=== PATIENT | male | born 2000 | race Caucasian/White ===

== ENCOUNTER 2021-04-05 10:50 | Emergency (ER) | payer OTHER ==
[~2021-04-05] VITALS: Ht 175.3 cm; Wt 69.2 kg
--- NOTE | 2021-04-05 11:09 | NUR ---
FIRST CONTACT: "I THINK I HAVE PANCREATITS, MY MOM OF IT IN DECEMBER AND MY SISTER HAD IT"N/V, "SKIN IS YELLOW", FATIGUE, LOOSE STOOL NOT VACCINATED FOR COVID-19 PT WITH STEADY GAIT TO ROOM. ATTACHED TO MONITORS. VSS. OTTO. AWAITING ORDERS.
--- NOTE | 2021-04-05 11:19 | NUR ---
KIRBY CHRISTIANSON TO BEDSIDE FOR EVALUATION
[2021-04-05] MEDS ORDERED: SODIUM CHLORIDE 0.9% 1,000ML IVBOLUS ONE (11:30)
[2021-04-05] MEDS ORDERED: ONDANSETRON 2MG/ML, 2ML IVPush ONE (11:30)
[2021-04-05] MEDS ORDERED: FAMOTIDINE 20 MG/2 ML IVPush ONE (11:30)
[2021-04-05] MEDS ORDERED: SODIUM CHLORIDE FLUSH 10ML SYR IVF ONE (11:30)
[2021-04-05] MEDS ORDERED: FAMOTIDINE 20 MG/2 ML ONE (11:31)
[2021-04-05] MEDS ORDERED: ONDANSETRON 2MG/ML, 2ML ONE (11:31)
[2021-04-05 11:39] VITALS: BP 122/78
[2021-04-05 11:43] LABS: BASOPHILS % (AUTO) 0 % (0-1); EOSINOPHILS % (AUTO) 1 % (1-7); LYMPHOCYTES % (AUTO) 13 % (22-44); MEAN CORPUSCULAR HEMOGLOBIN 31.4 pg (27.5-34.5); MEAN CORPUSCULAR HGB CONC 36.1 g/dL (33.2-36.2); MEAN PLATELET VOLUME 7.3 fL (7.4-10.4); MONOCYTES % (AUTO) 18 % (2-9); NEUTROPHILS % (AUTO) 68 % (42-75); PLATELET COUNT 179 x10^3/uL (130-400); RED BLOOD COUNT 5.13 x10^6/uL (4.38-5.82); RED CELL DISTRIBUTION WIDTH 12.7 % (9.4-14.8)
[2021-04-05 11:46] LABS: ALANINE AMINOTRANSFERASE 22 U/L (12-78); ALBUMIN 4.1 g/dL (3.4-5.0); ANION GAP 6 mmol/L (5-15); CALCIUM 9.4 mg/dL (8.5-10.1); CHLORIDE 107 mmol/L (98-107); CREATININE 1.11 mg/dL (0.7-1.3)
[2021-04-05 11:49] LABS: ALKALINE PHOSPHATASE 70 U/L (45-117); BILIRUBIN,TOTAL 1.1 mg/dL (0.2-1.0); TOTAL PROTEIN 7.7 g/dL (6.4-8.2)
--- NOTE | 2021-04-05 12:00 | NUR ---
THIS RN REQUESTED UA SAMPLE FROM PT, PER PT "I ALREADY WENT PEE BEFORE YOU CAME IN" KIRBY CHRISTIANSON NOTIFED.
--- NOTE | 2021-04-05 12:53 | NUR ---
Patient given discharge instructions and they have confirmed that they understand the instructions. Patient ambulatory with steady gait. NAD, all questions answered appropriately, denies additional needs at this time. No personal belongings left in room after discharge.
== END 2021-04-05 12:53 | disposition home or self-care (01) ==
LOC: ED 12:02
DX: R11.2 Nausea with vomiting, unspecified (principal); R19.7 Diarrhea, unspecified; R10.9 Unspecified abdominal pain
CPT/HCPCS: 36415; 80053; 83690; 85025; 96374; 96375; 99284; J2405; J7030